=== PATIENT | male | born 1950 | race Caucasian/White ===

== ENCOUNTER 2018-06-26 17:40 | Emergency (ER) | payer BC, MEDICARE ==
[2018-06-26] MEDS ORDERED: Acetaminophen TAB* 325 MG PO ONE (18:15)
[2018-06-26 18:25] VITALS: BP 119/54
[2018-06-26 18:41] LABS: Influenza A Molecular POSITIVE (Negative)
--- NOTE | 2018-06-26 18:50 | UC ---
HPI Febrile Illness - HPI Summary HPI Summary: History of CLL, monitored by Dr. Lopez in [place], with WBC 2 months ago or 56,000, normal RBC and platelets. Not currently on treatment. 5 day history of malaise, with onset of fever on 06/23, with malaise, myalgias, headache, cough, mild shortness of breath. Trying to stay hydrated. Temp to 103.4 this afternoon, last antipyretic prior to arrival was 5 am. Appetite decreased, no vomiting, some loose stools. Has not had a flu shot, was exposed to a parishioner 8 days ago. - History of Current Complaint Chief Complaint: UCGeneralIllness Time Seen by Provider: 06/26/18 18:43 Hx Obtained From: Patient Onset/Duration: Started Days Ago - 4 Timing: Constant Initial Severity: Moderate Current Severity: Moderate Pain Intensity: 6 Aggravating Factors: Nothing Alleviating Factors: OTC Medicine Associated Signs and Symptoms: Chills, Diaphoresis, Headache, Myalgia, Nausea, SOB - Risk Factors Pseudomonas Risk Factors: Negative - Allergy/Home Medications Allergies/Adverse Reactions: Allergies Allergy/AdvReac Type Severity Reaction Status Date / Time amoxicillin Allergy Rash Verified 06/26/18 18:11 Penicillins Allergy Rash Verified 06/26/18 18:11 Home Medications: Home Medications Cyanocobalamin TAB* [Vitamin B12 TAB*] 500 mcg PO DAILY 06/26/18 [History Confirmed 06/26/18] Dm/P-Ephed/Acetaminoph/Doxylam [Nighttime D Cold-Flu Rlf Liq] 1 udc PO DAILY 09/08 [History Confirmed 06/26/18] Elderberry Fruit and Flower [Black Elderberry 575 mg] 1 cap PO TID 06/26/18 [ History Confirmed 06/26/18] Oscillococcinum 4 oz PO TID 06/26/18 [History] Syllimarin 1 tab PO DAILY 06/26/18 [History] Vitamin B Complex CAP* [B Complex CAP*] 1 cap PO DAILY 06/26/18 [History Confirmed 06/26/18] Zypam 1 tab PO DAILY 06/26/18 [History] PMH/Surg Hx/FS Hx/Imm Hx Previously Healthy: No - CLL, had chemo in 2005 GI/ History: Other - Lost approximately 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 Cancer History: Other - CLL - Surgical History Surgical History: Yes Surgery Procedure, Year, and Place: hernia repair, right shoulder surgery - Family History Known Family History: Positive: Hypertension - Social History Occupation: Employed Full-time - [employer] Lives: With Family Alcohol Use: None Substance Use Type: None Smoking Status (MU): Never Smoked Tobacco Review of Systems All Other Systems Reviewed And Are Negative: Yes Constitutional: Positive: Fever, Chills, Fatigue Skin: Positive: Negative Eyes: Positive: Negative ENT: Positive: Sinus Congestion Respiratory: Positive: Shortness Of Breath, Cough Cardiovascular: Positive: Negative Gastrointestinal: Positive: Nausea Genitourinary: Positive: Frequency - hisory of BPH, voids frequently, Urine a bit dark. Motor: Positive: Negative Neurovascular: Positive: Negative Musculoskeletal: Positive: Arthralgia, Myalgia Neurological: Positive: Headache Psychological: Positive: Negative Is Patient Immunocompromised?: No Physical Exam Triage Information Reviewed: Yes Appearance: Ill-Appearing - looks unwell, diaphoretic, Thin Vital Signs: Initial Vital Signs Temp 103.4 F 06/26/18 18:20 Pulse 79 06/26/18 18:20 Resp 16 06/26/18 18:20 BP 119/54 06/26/18 18:20 Pulse Ox 97 06/26/18 18:20 Eyes: Positive: Conjunctiva Clear ENT: Positive: Pharynx normal, Nasal congestion Neck: Positive: Supple, Nontender, No Lymphadenopathy Respiratory: Positive: Decreased breath sounds, Crackles - left base Cardiovascular: Positive: No Murmur, Tachycardia Abdomen Description: Positive: Nontender, No Organomegaly, Soft Bowel Sounds: Positive: Present Musculoskeletal Exam: Normal Neurological: Positive: Alert, Muscle Tone Normal Psychological Exam: Normal Skin Exam: Normal Diagnostics - Radiology chest xray Radiology Interpretation Completed By: ED Physician Summary of Radiographic Findings: normal, no acute disease Course/Dx - Course Course Of Treatment: Flu A positive. Offered transfer to hospital but declined; discussed risks of CLL and his increased vulnerability. Symptomatic treatment for flu, discussed negligible benefit day 4 of illness. Discussed hydration. Aware to go to the ER if worsens. - Febrile Illness Differential Diagnoses: Fever of Unknown Origin, Neoplasm, Other: - influenza - Diagnoses Provider Diagnosis: Influenza A Discharge - Sign-Out/Discharge Documenting (check all that apply): Patient Departure All imaging exams completed and their final reports reviewed: No - Discharge Plan Condition: Stable Disposition: HOME Patient Education Materials: Influenza (ED) Referrals: Marielena BARTHOLOMEW,Tomer Conteh [Primary Care Provider] - Additional Instructions: As discussed, focus on control of fever and rehydration. Continue regular acetaminophen for the next 24 hours. Ensure high intake of fluids, aiming ofr 2 liters of fluid in the next 12 hours. If you develop worsening shortness of breath, dizziness, or fever persists, please go to the emergency room for evaluation. - Billing Disposition and Condition Condition: STABLE Disposition: Home
--- NOTE | 2018-06-27 09:19 | UC ---
- Progress Note Progress Note: please notify pt radiologist noted a possible small infiltrate left lung will treat for possible pneumonia doxy BID eRxed for 7 days follow up with his md in 3-5 days - EKG/XRAY/CT XRAY: chest - INTERVAL APPEARANCE OF INFILTRATE VERSUS ATELECTASIS AT THE POSTERIOR LUNG RELATIVE TO THE PRIOR CHEST X-RAY Course/Dx - Diagnoses Provider Diagnoses: Influenza A Discharge - Sign-Out/Discharge Documenting (check all that apply): Post-Discharge Follow Up All imaging exams completed and their final reports reviewed: Yes - Discharge Plan Condition: Stable Disposition: HOME Prescriptions: DOXYcycline CAP(*) [DOXYcycline 100MG CAP(*)] 100 mg PO BID #14 cap Patient Education Materials: Influenza (ED) Referrals: Marielena BARTHOLOMEW,Tomer Conteh [Primary Care Provider] - Additional Instructions: As discussed, focus on control of fever and rehydration. Continue regular acetaminophen for the next 24 hours. Ensure high intake of fluids, aiming ofr 2 liters of fluid in the next 12 hours. If you develop worsening shortness of breath, dizziness, or fever persists, please go to the emergency room for evaluation. - Billing Disposition and Condition Condition: STABLE Disposition: Home
== END 2018-06-26 19:58 | disposition home or self-care (01) ==
LOC: UCCORT 17:40
DX: J10.1 Influenza due to other identified influenza virus with other respiratory manifestations (principal); Z88.0 Allergy status to penicillin; Z85.6 Personal history of leukemia; Z92.21 Personal history of antineoplastic chemotherapy
CPT/HCPCS: 71046; 99212; A9270-GY; G0463